=== PATIENT | male | born 1955 | race African-American/Black ===

== ENCOUNTER 2017-04-12 12:22 | Emergency (ER) | payer MEDICARE, MEDICAID ==
[~2017-04-12] VITALS: Ht 177.8 cm; Wt 72.6 kg
[2017-04-12 13:29] VITALS: BP 115/64
--- NOTE | 2017-04-12 14:08 | Emergency Room Report ---
History of Present Illness General Chief Complaint: Multiple Trauma/Fall Source: Patient, Family Member Present Illness HPI 62-year-old male complains of pain to lateral aspect of right chest wall after accidental slip and fall yesterday. 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 but worsening pain with deep breath to area Denies pain to anywhere else No OTC meds Denies fever/chills Allergies: Coded Allergies: DIPHENHYDRAMINE (Verified Allergy, Unknown, 04/12/17) Patient History Past Medical History: none Pertinent Family History: none Social History: Denies: smoking, alcohol use, drug use Immunizations: UTD Reviewed Nursing Documentation: PMH: Agreed, PSxH: Agreed Nursing Documentation-PMH Past Medical History: No History, Except For Hx Cardiac Problems: Yes - Chest pain Hx Hypertension: Yes Hx Pacemaker: No Hx Asthma: Yes Hx COPD: No Hx Diabetes: No Hx Cancer: No Hx Gastrointestinal Problems: Yes Hx Dialysis: No History Of Psychiatric Problem: Yes - Schizophrenia Hx Neurological Problems: No Hx Cerebrovascular Accident: No Hx Seizures: No Review of Systems All Other Systems: negative except mentioned in HPI Physical Exam Vital Signs Date Time Temp Pulse Resp B/P (MAP) Pulse Ox O2 Delivery O2 Flow Rate FiO2 04/12/17 12:28 97.3 63 16 117/73 99 Room Air 97.3 Sp02 EP Interpretation: reviewed, normal General Appearance: normal inspection, well appearing, no apparent distress, alert, GCS 15, non-toxic Head: normocephalic, atraumatic Eyes: bilateral eye PERRL, bilateral eye EOMI ENT: normal ENT inspection, hearing grossly normal, normal pharynx, no angioedema, normal voice, TMs + canals normal, uvula midline, moist mucus membranes Neck: normal inspection, full range of motion, supple, thyroid normal, no meningismus, no bony tend Respiratory: normal inspection, lungs clear, normal breath sounds, no rhonchi, no respiratory distress, no retraction, no accessory muscle use, no wheezing, speaking full sentences, other - Palpation of right lateral wall shows crepitus. Lungs CTAB. 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 as tested, motor strength/tone normal, cerebellar normal, normal gait, speech normal Psychiatric: normal inspection, judgement/insight normal, mood/affect normal, no suicidal/homicidal ideation, no delusions Skin: normal inspection, normal color, no rash Lymphatic: normal inspection, no adenopathy Medical Decision Making Diagnostic Impression: Primary Impression: Fall Qualified Codes: W19.XXXA - Unspecified fall, initial encounter Additional Impression: Right rib fracture Qualified Codes: S22.31XA - Fracture of one rib, right side, initial encounter for closed fracture ER Course Right rib fx on ED review of imaging No PTX Reassured patient, family Patient requesting T#3, states already has narpoxen and that "doesnt work" Advised close PMD followup ER course: Patient has remained stable during ED stay. Disposition: Patient is to be discharged to home. Prescriptions given are T#3 Patient is instructed to follow up with their primary care doctor within 5 days. Strict return precautions discussed with patient such as fever, chills, worsening/severe pain, nausea, vomiting, which may indicate severe illness. Patient verbalizes understanding and agrees with plan. Please note that this Emergency Department Report was dictated using [employer] technology software, occasionally this can lead to erroneous entry secondary to interpretation by the dictation equipment Other X-Ray Diagnostic Results Other X-Ray Diagnostic Results : X-Ray ordered: Rib series # of Views/Limited Vs Complete: 4 View Indication: Pain EP Interpretation: Yes Interpretation: no dislocation, no soft tissue swelling, other - No PTX Impression: Other - 11th rib fx Electronically Signed by: Dr Loree Sanchez MD Last Vital Signs Date Time Temp Pulse Resp B/P (MAP) Pulse Ox O2 Delivery O2 Flow Rate FiO2 04/12/17 13:29 56 15 115/64 100 Room Air 04/12/17 12:28 97.3 97.3 Status: improved Disposition: HOME, SELF-CARE Scripts Acetaminophen With Codeine (T#3) (TYLENOL #3 TAB*) Y Tab 1 TAB ORAL Q8H Y for For Pain for 7 Days, #20 TAB Prov: LOREE SANCHEZ M.D. 04/12/17 Ibuprofen* (MOTRIN*) 600 Mg Tablet 600 MG ORAL THREE TIMES A DAY for For Pain for 7 Days, #30 TAB 0 Refills Prov: LOREE SANCHEZ M.D. 04/12/17 Referrals: NON PHYSICIAN (PCP) LOREE SANCHEZ M.D. Apr 12, 2017 14:08
[2017-04-12] MEDS ORDERED: Tylenol #3 tab (300mg/30mg) ORAL ONE (14:15)
--- NOTE | 2017-04-12 15:04 | Diagnostic Imaging Report ---
Indication: Right rib pain Comparison: None Findings: 5 views of the right rib cage obtained. There is an acute fracture of the right 11th rib. There is mild atelectasis at both lung bases. No pneumothorax seen. The bones are osteopenic. IMPRESSION: Acute right 11th rib fracture
[2017-04-12] MEDS ORDERED: IBUPROFEN600 MG ORAL (15:08)
[2017-04-12] MEDS ORDERED: ACETAMINOPHEN-1 EAC1 ORAL (15:17)
[2017-04-12 15:20] VITALS: BP 117/63
[2017-04-12 15:21] VITALS: BP 117/63
== END 2017-04-12 15:21 | disposition home or self-care (01) ==
LOC: EMR 13:45
DX: S22.31XA Fracture of one rib, right side, initial encounter for closed fracture (principal); W01.0XXA Fall on same level from slipping, tripping and stumbling without subsequent striking against object, initial encounter; Y92.009 Unspecified place in unspecified non-institutional (private) residence as the place of occurrence of the external cause; I10 Essential (primary) hypertension; F20.9 Schizophrenia, unspecified; J45.909 Unspecified asthma, uncomplicated; Z88.8 Allergy status to other drugs, medicaments and biological substances
CPT/HCPCS: 99284